=== PATIENT | male | born 1960 | race American Indian/Alaskan Native ===

== ENCOUNTER 2018-10-03 16:46 | Observation (INO) | payer MEDICARE ==
[2018-10-03 16:46] VITALS: BMI 37.3
[2018-10-03] MEDS ORDERED: Sodium Chloride 0.9% 500 ML IV STA (17:01)
--- NOTE | 2018-10-03 17:16 | ED PDOC ---
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 was at the bus stop and started getting light-headed and got chest pain/palpitations/dyspnea. He went to his friend's place and called the ambulance. Currently has no symptoms and feels back to baseline. Has had similar in the past 3-4 times and was dx with chf. On bp and water pill. No leg pain, nausea, vomit, abd pain, weakness, headaches. No cough. Past Medical History Reviewed: Nursing Documentation, Vital Signs Vital Signs: Last Vital Signs Temp 98.2 F 10/03/18 16:49 Pulse 118 H 10/03/18 16:49 Resp BP 208/111 H 10/03/18 16:49 Pulse Ox 98 10/03/18 16:49 - Medical History PMH: Arthritis, Asthma, Bronchitis, CAD, CHF, Diverticulitis, Hiatal Hernia, HTN - Surgical History Surgical History: Coronary Stent (x3), Hernia Repair ([facility]) - Family History Family History: States: Unknown Family Hx - Immunization History Hx Tetanus Toxoid Vaccination: Yes Hx Influenza Vaccination: Yes Hx Pneumococcal Vaccination: Yes - Home Medications Home Medications: Ambulatory Orders Medication Instructions Recorded Colchicine 0.12 mg PO DAILY 12/25/15 Carvedilol [Coreg] 25 mg PO BID 01/24/16 Aspirin 325 mg PO DAILY 02/29/16 Lisinopril [Zestril] 40 mg PO BID 08/05/16 Multivit,Iron,Min 5/Folic Acid 1 tab PO DAILY 08/05/16 [Strovite Forte Caplet] Rosuvastatin Calcium [Crestor] 10 mg PO HS #30 tab 04/10/17 Furosemide [Lasix] 40 mg PO DAILY 11/20/17 Docusate Sodium [Colace] 100 mg PO BID #30 capsule 03/19/18 Meclizine HCl 25 mg PO TID PRN #25 tablet 06/03/18 predniSONE [Prednisone] 40 mg PO DAILY #10 tab 07/13/18 - Allergies Allergies/Adverse Reactions: Allergies Allergy/AdvReac Type Severity Reaction Status Date / Time cephalexin monohydrate AdvReac VOMITING Verified 10/03/18 16:49 [From Keflex] iodixanol [From Visipaque] AdvReac VOMITING Verified 10/03/18 16:49 ctscan dye AdvReac VOMITING Uncoded 10/03/18 16:49 Review of Systems ROS Statement: Except As Marked, All Systems Reviewed And Found Negative Cardiovascular: Positive for: Chest Pain, Palpitations, Light Headedness Respiratory: Positive for: Shortness of Breath Neurological: Positive for: Dizziness Physical Exam - Reviewed Nursing Documentation Reviewed: Yes Vital Signs Reviewed: Yes - Physical Exam Appears: Positive for: Uncomfortable Head Exam: Positive for: ATRAUMATIC, NORMAL INSPECTION, NORMOCEPHALIC Skin: Positive for: Normal Color, Warm, DRY Eye Exam: Positive for: EOMI, Normal appearance, PERRL ENT: Positive for: Normal ENT Inspection Neck: Positive for: Normal, Painless ROM Cardiovascular/Chest: Positive for: Chest Non Tender, Tachycardia. Negative for: Edema Respiratory: Positive for: CNT, Normal Breath Sounds Gastrointestinal/Abdominal: Positive for: Normal Exam, Soft. Negative for: Tenderness Back: Positive for: Normal Inspection. Negative for: L CVA Tenderness, R CVA Tenderness Extremity: Positive for: Normal ROM. Negative for: Tenderness, Pedal Edema Neurologic/Psych: Positive for: Alert, wrist hemmer II-XII, Oriented. Negative for: M otor/Sensory Deficits - Laboratory Results Result Diagrams: 10/03/18 17:43 10/03/18 17:43 Lab Results: 3.5 k - ECG ECG: Positive for: Interpreted By Me, Viewed By Id ECG Rhythm: Positive for: Normal QRS, Sinus Tachycardia, Nonspecific Changes Interpretation Of Abn EKG: ekg 2: nonspecific st/t changes O2 Sat by Pulse Oximetry: 98 - Radiology X-Ray: Read By Radiologist X-Ray Interpretation: No Acute Disease - CT Scan/US ct Other Rad Studies (CT/US): Read By Radiologist Other Rad Interpretation: no acute - Progress ED Course And Treament: 1730: Stable. Pt. HR went up to 240s. Unable to catch on EKG as it went down after 1 min to 120s. Pt. had dizziness and palpitations during the symptoms, but gone after HR went down. When listening to heart during 240s HR. It was irregularly irregular. Will give cardizem 10mg to help with bp and possible intermittent afib. Repeat ekg showed nonspecific changes. EKG [address] Alvarado for code heart. States both are not in criteria for code heart. To follow protocol for eval. Pt. with no acute chest pain, dyspnea, or dizziness currently. 1903: Stable. HR maintained. No spikes. AAOx3. Has no symptoms currently. Will need admit. Unable to get CTA for PE as pt. allergic to dye. Symptoms more likely from arrythmia. PCP Dr. Hammonds. Cards Dr. Eubanks. 1921: Stable. Spoke with Dr. Andrade. Will admit. Will give 5 of lopressor. ICU. - Critical Care Total Time (In Min): 60 Documented Critical Care: Time excludes all time spent performint seperately billable procedures Disposition - Clinical Impression Clinical Impression: Acute chest pain, Arrhythmia, Tachycardia - Patient ED Disposition Is Patient to be Admitted: Yes Counseled Patient/Family Regarding: Studies Performed, Diagnosis - Disposition Disposition Time: 19:24 Condition: FAIR - Pt Status Changed To: Hospital Disposition Of: Inpatient - Admit Certification Admit to Inpatient:: After my assessment, the patient will require hospitalization for at least two midnights. This is because of the severity of symptoms shown, intensity of services needed, and/or the medical risk in this patient being treated as an outpatient. - POA Present On Arrival: None
[2018-10-03 17:49] LABS: BASO % 0.7 % (0.0-2.0); EOS # 0.1 K/uL (0.0-0.7); EOS % 1.4 % (0.0-4.0); HEMOGLOBIN 14.5 g/dL (12.0-18.0); LYMPH # 1.8 K/uL (1.0-4.3); MEAN CELL VOLUME 75.9 fl (80.0-94.0); MEAN CORPUSCULAR HEMOGLOBIN 24.3 pg (27.0-31.0); MEAN PLATELET VOLUME 7.5 fl (7.2-11.7); MONO # 0.6 K/uL (0.0-0.8); MONO % 12.8 % (0.0-10.0); NEUT % 45.1 % (50.0-75.0); RBC 5.95 Mil/uL (4.40-5.90); RED CELL DISTRIBUTION WIDTH 16.9 % (11.5-14.5); WHITE BLOOD COUNT 4.5 K/uL (4.8-10.8)
[2018-10-03 17:55] LABS: INR 1.1; PROTHROMBIN TIME 12.7 Seconds (9.8-13.1)
[2018-10-03 17:58] LABS: PARTIAL THROMBOPLASTIN TIME 34.8 Seconds (25.6-37.1)
[2018-10-03 18:01] LABS: ALB/GLOB RATIO 1.1 (1.0-2.1); ALBUMIN 4.5 g/dL (3.5-5.0); ALT/SGPT 45 U/L (21-72); AST/SGOT 48 U/L (17-59); BLOOD UREA NITROGEN 16 mg/dl (9-20); CALCIUM 9.5 mg/dL (8.4-10.2); GFR NON-AFRICAN AMERICAN > 60; LIPASE 88 U/L (23-300)
--- NOTE | 2018-10-03 18:01 | RAD ---
Date of service: 10/03/2018 HISTORY: dyspnea COMPARISON: No prior. FINDINGS: LUNGS: No active pulmonary disease. PLEURA: No significant pleural effusion identified, no pneumothorax apparent. CARDIOVASCULAR: Aortic atherosclerotic calcifications. Cardiomediastinal silhouette enlarged. OSSEOUS STRUCTURES: Spinal degenerative changes. VISUALIZED UPPER ABDOMEN: Normal. OTHER FINDINGS: None. IMPRESSION: No active disease.
[2018-10-03 18:12] LABS: B-TYPE NATRIURETIC PEPTIDE 73.2 pg/ml (0-900)
[2018-10-03 18:13] LABS: BARBITURATES, UR NEGATIVE (NEGATIVE); BENZODIAZEPINES, UR NEGATIVE (NEGATIVE); OPIATES, UR NEGATIVE (NEGATIVE); PHENCYCLIDINE, UR NEGATIVE (NEGATIVE)
[2018-10-03] MEDS ORDERED: Metoprolol 1 mg/ml Inj IVP STA (19:18)
[2018-10-03] MEDS ORDERED: Metoprolol 1 mg/ml Inj ONE (19:32)
--- NOTE | 2018-10-03 20:37 | CP.PCM.HP ---
History of Present Illness - History of Present Illness History of Present Illness: CC: heart racing HPI: This is a 58 year old male PMH CHF on Lasix 80 mg daily, hx of episodes of tachycardia, hypertension, morbid obesity, gout, moderate coronary artery disease status post catheterization 3, presents to the emergency department today for an episode of lightheadedness and palpitations, with some chest pain. Patient states he was at his friends watching a basketball game where he had a few beers and a few shots, some marijuana. He went to take the bus and began experiencing moderate, worsening lightheadedness that persisted until he arrived to the ED via EMS. The episodes are aggravated by standing and ameliorated when laying down. He denies any dypsnea, and is not hypoxic. In the ED heart rate was in 170s and spiked to 240s and self limited back down to the 170s. EKG showed sinus tachycardia. He was given Cardizem 10 mg and Lopressor 5 IV. HR now in 130s. It is unclear if patient has been compliant with medications today, and his home dose of Coreg has been resumed as well. He appears clinically dry and is receiving NS in ED @ 100. Hold lasix tonight and consider resuming tomorrow. He is HD stable, in no acute distress, and to be placed on OBS TELE. ROS: Per HPI all other systems reviewed and negative PMSH:CHF on Lasix 80 mg daily, hx of episodes of tachycardia, hypertension, morbid obesity, gout, moderate coronary artery disease status post catheterization 3 FH: father and brother with pacemakers SH: moderate drinking, minimal marijuana use, denies IVDU Meds as below Allergies: Keflex and Contrast, difficulty breathing Present on Admission - Present on Admission Any Indicators Present on Admission: No Past Patient History - Infectious Disease Hx of Infectious Diseases: None - Past Medical History & Family History Past Medical History?: Yes - Past Social History Smoking Status: Never Smoked - CARDIAC Hx Congestive Heart Failure: Yes Hx Hypertension: Yes - PULMONARY Hx Asthma: Yes Hx Bronchitis: Yes - NEUROLOGICAL Hx Neurological Disorder: No - HEENT Hx HEENT Problems: No - ENDOCRINE/METABOLIC Hx Endocrine Disorders: No - HEMATOLOGICAL/ONCOLOGICAL Hx Blood Disorders: No - INTEGUMENTARY Hx Dermatological Problems: Yes Hx Cellulitis: Yes - MUSCULOSKELETAL/RHEUMATOLOGICAL Hx Arthritis: Yes - GASTROINTESTINAL Hx Diverticulitis: Yes - GENITOURINARY/GYNECOLOGICAL Hx Genitourinary Disorders: No - PSYCHIATRIC Hx Psychophysiologic Disorder: No Hx Substance Use: No - SURGICAL HISTORY Hx Coronary Stent: Yes (x3) - ANESTHESIA Hx Anesthesia: Yes Hx Anesthesia Reactions: No Hx Malignant Hyperthermia: No Meds Allergies/Adverse Reactions: Allergies Allergy/AdvReac Type Severity Reaction Status Date / Time cephalexin monohydrate AdvReac VOMITING Verified 10/03/18 16:49 [From Keflex] iodixanol [From Visipaque] AdvReac VOMITING Verified 10/03/18 16:49 ctscan dye AdvReac VOMITING Uncoded 10/03/18 16:49 Physical Exam - Constitutional Appears: Non-toxic, No Acute Distress - Head Exam Head Exam: ATRAUMATIC, NORMOCEPHALIC - Eye Exam Eye Exam: EOMI, Normal appearance, PERRL - ENT Exam ENT Exam: Mucous Membranes Dry, Normal Oropharynx - Respiratory Exam Respiratory Exam: Clear to Auscultation Bilateral, NORMAL BREATHING PATTERN - Cardiovascular Exam Cardiovascular Exam: Tachycardia, +S1, +S2 - GI/Abdominal Exam GI & Abdominal Exam: Normal Bowel Sounds, Soft. absent: Guarding, Organomegaly, Rebound - Extremities Exam Extremities exam: Positive for: normal capillary refill, pedal pulses present - Back Exam Back exam: absent: CVA tenderness (L), CVA tenderness (R) - Neurological Exam Neurological exam: Alert, Oriented x3 - Psychiatric Exam Psychiatric exam: Normal Affect, Normal Mood - Skin Skin Exam: Dry, Warm Results - Vital Signs Recent Vital Signs: Last Vital Signs Temp 98.2 F 10/03/18 16:49 Pulse 138 H 10/03/18 19:33 Resp 17 10/03/18 18:12 BP 132/91 H 10/03/18 19:33 Pulse Ox 98 10/03/18 19:24 - Labs Result Diagrams: 10/03/18 17:43 10/03/18 17:43 Labs: Laboratory Results - last 24 hr 10/03/18 10/03/18 10/03/18 17:43 17:43 17:43 WBC 4.5 L RBC 5.95 H Hgb 14.5 Hct 45.2 MCV 75.9 L MCH 24.3 L MCHC 32.0 L RDW 16.9 H Plt Count 327 MPV 7.5 Neut % (Auto) 45.1 L Lymph % (Auto) 40.0 [place] % (Auto) 12.8 H Eos % (Auto) 1.4 Baso % (Auto) 0.7 Neut # (Auto) 2.0 Lymph # (Auto) 1.8 [place] # (Auto) 0.6 Eos # (Auto) 0.1 Baso # (Auto) 0.0 PT INR APTT Sodium 140 Potassium 3.5 L Chloride 95 L Carbon Dioxide 26 Anion Gap 23 H BUN 16 Creatinine 1.0 Est GFR ( Amer) > 60 Est GFR (Non-Af Amer) > 60 Random Glucose 118 H Calcium 9.5 Total Bilirubin 0.3 AST 48 ALT 45 Alkaline Phosphatase 86 Troponin I < 0.0120 NT-Pro-B Natriuret Pep 73.2 Total Protein 8.6 H Albumin 4.5 Globulin 4.1 H Albumin/Globulin Ratio 1.1 Lipase 88 Urine Opiates Screen Negative Urine Methadone Screen Negative Ur Barbiturates Screen Negative Ur Phencyclidine Scrn Negative Ur Amphetamines Screen Negative U Benzodiazepines Scrn Negative U Oth Cocaine Metabols Negative U Cannabinoids Screen Negative 10/03/18 17:43 WBC RBC Hgb Hct MCV MCH MCHC RDW Plt Count MPV Neut % (Auto) Lymph % (Auto) [place] % (Auto) Eos % (Auto) Baso % (Auto) Neut # (Auto) Lymph # (Auto) [place] # (Auto) Eos # (Auto) Baso # (Auto) PT 12.7 INR 1.1 APTT 34.8 Sodium Potassium Chloride Carbon Dioxide Anion Gap BUN Creatinine Est GFR ( Amer) Est GFR (Non-Af Amer) Random Glucose Calcium Total Bilirubin AST ALT Alkaline Phosphatase Troponin I NT-Pro-B Natriuret Pep Total Protein Albumin Globulin Albumin/Globulin Ratio Lipase Urine Opiates Screen Urine Methadone Screen Ur Barbiturates Screen Ur Phencyclidine Scrn Ur Amphetamines Screen U Benzodiazepines Scrn U Oth Cocaine Metabols U Cannabinoids Screen Assessment & Plan - Assessment and Plan (Free Text) Assessment: This is a 58 year old male PMH CHF on Lasix 80 mg daily, hx of episodes of tachycardia, hypertension, morbid obesity, gout, moderate coronary artery disease status post catheterization 3, presents to the emergency department today for an episode of lightheadedness and palpitations, with some chest pain. Patient states he was at his friends watching a basketball game where he had a few beers and a few shots, some marijuana. He went to take the bus and began experiencing moderate, worsening lightheadedness that persisted until he arrived to the ED via EMS. The episodes are aggravated by standing and ameliorated when laying down. He denies any dypsnea, and is not hypoxic. In the ED heart rate was in 170s and spiked to 240s and self limited back down to the 170s. EKG showed sinus tachycardia. He was given Cardizem 10 mg and Lopressor 5 IV. HR now in 130s. It is unclear if patient has been compliant with medications today, and his home dose of Coreg has been resumed as well. He appears clinically dry and is receiving NS in ED @ 100. Hold lasix tonight and consider resuming tomorrow. He is HD stable, in no acute distress, and to be placed on OBS TELE. Sinus Tachycardia 2/2 medication noncompliance vs. volume depletion vs. postural orthostatic tachycardia. - currently HR 130s - received Cardizem 10 mg and Lopressor 5 mg IV with appropriate response - received KCl 40 meq for K 3.5, checking Mg in AM as well - resumed home dose of Coreg as it is unclear if he is complaint with meds, reevaluate and will adjust dose as necessary - patient on Lasix 80 mg daily however appears clinically volume depleted with dry mm, dark urine noted in ED, will hold Lasix and reevaluate tomorrow - receiving NS @100 - TSH, electrolytes in AM - obs on TELE CHF / Mild Pulmonary HTN? CAD HTN - all conditions stable - Carvedilol 25 mg PO q12 - Rosuvastatin 10 mg PO HS - Aspirin 325 mg PO DAILY - Lisinopril 40 mg PO q12 Gout - stable - Colchicine 0.12 mg PO DAILY DVT ppx Enoxaparin 40 mg SC DAILY
[2018-10-03] MEDS ORDERED: Potassium Chloride 20 mEq ER Tab PO ONE (20:45)
[2018-10-04 07:30] LABS: BLOOD UREA NITROGEN 14 mg/dl (9-20); CALCIUM 9.1 mg/dL (8.4-10.2); GFR NON-AFRICAN AMERICAN > 60
[2018-10-04] MEDS ORDERED: Enoxaparin 40 mg Syringe SC SCH (09:00)
--- NOTE | 2018-10-04 09:02 | CT ---
Date of service: 10/03/2018 PROCEDURE: CT HEAD WITHOUT CONTRAST. HISTORY: headache COMPARISON: None available. TECHNIQUE: Axial computed tomography images were obtained through the head/brain without intravenous contrast. Radiation dose: Total exam DLP = 914.8 mGy-cm. This CT exam was performed using one or more of the following dose reduction techniques: Automated exposure control, adjustment of the mA and/or kV according to patient size, and/or use of iterative reconstruction technique. FINDINGS: HEMORRHAGE: No intracranial hemorrhage. BRAIN: No mass effect or edema. No atrophy or chronic microvascular ischemic changes. VENTRICLES: Unremarkable. No hydrocephalus. CALVARIUM: Unremarkable. PARANASAL SINUSES: Unremarkable as visualized. No significant inflammatory changes. MASTOID AIR CELLS: Unremarkable as visualized. No inflammatory changes. OTHER FINDINGS: None. IMPRESSION: No acute intracranial pathology.
--- NOTE | 2018-10-04 09:46 | CP.PCM.PN ---
Subjective - Date & Time of Evaluation Date of Evaluation: 10/04/18 Time of Evaluation: 09:46 - Subjective Subjective: Patient seen and examined at bedside. Patient reports he feels well and reports he has good appetite. Has not yet had a BM. Denies Chest pain, shortness of breath, Palpitations, nausea or vomiting. Of note, patients HR was 138-140's this morning. At that time, patient was given Cardizem IVP 5mg stat and Cardizem 30mg po stat. HR decreased to 118-120's. Patient reported symptom of sweating but denied chest pain, dyspnea, dyspnea on exertion or chest pain on exertion. Patient denies use of cocaine. Objective - Vital Signs/Intake and Output Vital Signs (last 24 hours): Temp Pulse Resp BP Pulse Ox 98.0 F 130 H 18 143/81 98 10/04/18 08:00 10/04/18 08:06 10/04/18 08:00 10/04/18 08:06 10/04/18 08:00 - Medications Medications: Current Medications Aspirin (Aspirin) 325 mg PO DAILY [facility] Last Admin: 10/04/18 08:09 Dose: 325 mg Atorvastatin Calcium (Lipitor) 20 mg PO HS [facility] Last Admin: 10/03/18 23:54 Dose: 20 mg Carvedilol (Coreg) 25 mg PO Q12 [facility] Last Admin: 10/04/18 08:06 Dose: 25 mg Colchicine (Colocrys) 1.2 mg PO DAILY [facility] Last Admin: 10/04/18 08:06 Dose: 1.2 mg Diltiazem HCl (Cardizem) 5 mg IVP ONCE STA Stop: 10/04/18 09:44 Diltiazem HCl (Cardizem) 30 mg PO ONCE ONE Stop: 10/04/18 09:44 Docusate Sodium (Colace) 100 mg PO BID [facility] Last Admin: 10/04/18 08:07 Dose: 100 mg Enoxaparin Sodium (Lovenox) 40 mg SC DAILY [facility]; Protocol Last Admin: 10/04/18 08:07 Dose: 40 mg Lisinopril (Zestril) 40 mg PO Q12 [facility] Last Admin: 10/04/18 08:05 Dose: 40 mg - Labs Labs: 10/03/18 17:43 10/04/18 06:45 PT 12.7 Seconds (9.8-13.1) 10/03/18 17:43 INR 1.1 10/03/18 17:43 APTT 34.8 Seconds (25.6-37.1) 10/03/18 17:43 - Constitutional Appears: Non-toxic, No Acute Distress - Eye Exam Eye Exam: Normal appearance - ENT Exam ENT Exam: Mucous Membranes Moist - Respiratory Exam Respiratory Exam: Clear to Ausculation Bilateral, NORMAL BREATHING PATTERN. absent: Decreased Breath Sounds, Rales, Rhonchi, Wheezes, Respiratory Distress, Stridor - Cardiovascular Exam Cardiovascular Exam: Tachycardia, +S1, +S2. absent: Gallop, Rubs, Murmur Additional comments: +2 RADIAL PULSES BILATERALLY. Tachycardia noted. - GI/Abdominal Exam GI & Abdominal Exam: Soft, Normal Bowel Sounds. absent: Firm, Guarding, Rigid, Tenderness, Rebound Additional comments: Obese abdomen. - Extremities Exam Extremities Exam: Normal Capillary Refill, Normal Inspection. absent: Joint Swelling, Pedal Edema, Tenderness Additional comments: +2 dorsalis pedis pulses bilaterally. - Neurological Exam Neurological Exam: Alert, Awake - Skin Skin Exam: Dry, Intact, Normal Color, Warm Assessment and Plan - Assessment and Plan (Free Text) Assessment: 58 year old male PMH CHF on Lasix 80 mg daily, hx of episodes of tachycardia, hypertension, morbid obesity, gout, moderate coronary artery disease status post catheterization 3, presents to the emergency department today for an episode of lightheadedness and palpitations, with some chest pain admitted for sinus tachycardia. Plan: Sinus Tachycardia 2/2 medication noncompliance vs. volume depletion vs. postural orthostatic tachycardia. - currently HR 120-130's - received Cardizem 5 mg IVP and Cardizem 30mg PO which decreased his tachycardia of 138-140's to 118-120's. - Lasix 80 mg currently on hold due to being clinically volume depleted - TSH- normal (0.71) - Continue to obs on TELE - Cardiac consult appreciated. - Troponin negative x2. Pending 3rd troponin. CHF / Mild Pulmonary HTN? - stable - Carvedilol 25 mg PO q12 - Rosuvastatin 10 mg PO HS - Aspirin 325 mg PO DAILY - Lisinopril 40 mg PO q12 CAD - stable - Carvedilol 25 mg PO q12 - Rosuvastatin 10 mg PO HS - Aspirin 325 mg PO DAILY - Lisinopril 40 mg PO q12 HTN - stable - Carvedilol 25 mg PO q12 - Rosuvastatin 10 mg PO HS - Aspirin 325 mg PO DAILY - Lisinopril 40 mg PO q12 Gout - stable - Colchicine 0.12 mg PO DAILY DVT ppx Enoxaparin 40 mg SC DAILY
--- NOTE | 2018-10-04 16:49 | CARD ---
APPROVED REPORT Date of service: 10/03/2018 EKG Measurement Heart [id number] [id number] <Conclusion> Sinus tachycardia ST & T wave abnormality, consider inferior ischemia Abnormal ECG
[2018-10-04] MEDS: Enoxaparin 150 mg Syringe SC SCH (21:11)
--- NOTE | 2018-10-04 23:59 | CARD ---
APPROVED REPORT Date of service: 10/03/2018 EKG Measurement Heart [id number] 200P [id number] <Conclusion> Sinus tachycardia ST abnormality, consider inferolateral ischemia Abnormal ECG
[2018-10-05] MEDS: Enoxaparin 150 mg Syringe SC SCH (08:25)
[2018-10-05 08:26] VITALS: RESP 20
[2018-10-05 08:46] LABS: HEMOGLOBIN 14.7 g/dL (12.0-18.0); MEAN CELL VOLUME 76.4 fl (80.0-94.0); MEAN CORPUSCULAR HEMOGLOBIN 24.4 pg (27.0-31.0); MEAN CORPUSCULAR HGB CONC 31.9 g/dL (33.0-37.0); RBC 6.03 Mil/uL (4.40-5.90); RED CELL DISTRIBUTION WIDTH 16.8 % (11.5-14.5); WHITE BLOOD COUNT 4.9 K/uL (4.8-10.8)
[2018-10-05] MEDS ORDERED: Digoxin 250 mcg (0.25 mg) Tab PO ONE ×2 (09:08→09:30)
[2018-10-05 09:12] LABS: BLOOD UREA NITROGEN 15 mg/dl (9-20); CALCIUM 9.1 mg/dL (8.4-10.2); GFR NON-AFRICAN AMERICAN > 60
--- NOTE | 2018-10-05 09:16 | CP.PCM.DIS ---
Provider - Provider Date of Admission: 10/03/18 19:19 Attending physician: Constanza Andrade DO Consults: 10/04/18 08:48 Cardiology Consult Routine Comment: Consulting Provider: Neil Goyal Consulting Physician: Neil Goyal Reason for Consult: tachycardia history of CAD Time Spent in preparation of Discharge (in minutes): 30 Diagnosis - Discharge Diagnosis (1) Arrhythmia Status: Acute (2) Tachycardia Status: Acute (3) CAD (coronary artery disease) Status: Acute (4) Gout Status: Acute (5) HTN (hypertension) Status: Acute Hospital Course - Lab Results Lab Results: Most Recent Lab Values WBC 4.9 K/uL (4.8-10.8) 10/05/18 08:23 RBC 6.03 Mil/uL (4.40-5.90) H 10/05/18 08:23 Hgb 14.7 g/dL (12.0-18.0) 10/05/18 08:23 Hct 46.1 % (35.0-51.0) 10/05/18 08:23 MCV 76.4 fl (80.0-94.0) L 10/05/18 08:23 MCH 24.4 pg (27.0-31.0) L 10/05/18 08:23 MCHC 31.9 g/dL (33.0-37.0) L 10/05/18 08:23 RDW 16.8 % (11.5-14.5) H 10/05/18 08:23 Plt Count 349 K/uL (130-400) 10/05/18 08:23 MPV 7.5 fl (7.2-11.7) 10/03/18 17:43 Neut % (Auto) 45.1 % (50.0-75.0) L 10/03/18 17:43 Lymph % (Auto) 40.0 % (20.0-40.0) 10/03/18 17:43 [place] % (Auto) 12.8 % (0.0-10.0) H 10/03/18 17:43 Eos % (Auto) 1.4 % (0.0-4.0) 10/03/18 17:43 Baso % (Auto) 0.7 % (0.0-2.0) 10/03/18 17:43 Neut # (Auto) 2.0 K/uL (1.8-7.0) 10/03/18 17:43 Lymph # (Auto) 1.8 K/uL (1.0-4.3) 10/03/18 17:43 [place] # (Auto) 0.6 K/uL (0.0-0.8) 10/03/18 17:43 Eos # (Auto) 0.1 K/uL (0.0-0.7) 10/03/18 17:43 Baso # (Auto) 0.0 K/uL (0.0-0.2) 10/03/18 17:43 PT 12.7 Seconds (9.8-13.1) 10/03/18 17:43 INR 1.1 10/03/18 17:43 APTT 34.8 Seconds (25.6-37.1) 10/03/18 17:43 Sodium 137 mmol/l (132-148) 10/05/18 08:23 Potassium 4.1 MMOL/L (3.6-5.0) 10/05/18 08:23 Chloride 97 mmol/L (98-107) L 10/05/18 08:23 Carbon Dioxide 28 mmol/L (22-30) 10/05/18 08:23 Anion Gap 16 (10-20) 10/05/18 08:23 BUN 15 mg/dl (9-20) 10/05/18 08:23 Creatinine 1.1 mg/dl (0.8-1.5) 10/05/18 08:23 Est GFR ( Amer) > 60 10/05/18 08:23 Est GFR (Non-Af Amer) > 60 10/05/18 08:23 Random Glucose 124 mg/dL (75-110) H 10/05/18 08:23 Calcium 9.1 mg/dL (8.4-10.2) 10/05/18 08:23 Magnesium 1.9 MG/DL (1.6-2.3) 10/04/18 06:45 Total Bilirubin 0.3 mg/dl (0.2-1.3) 10/03/18 17:43 AST 48 U/L (17-59) 10/03/18 17:43 ALT 45 U/L (21-72) 10/03/18 17:43 Alkaline Phosphatase 86 U/L (38-126) 10/03/18 17:43 Troponin I 0.0220 ng/mL (0.00-0.120) 10/04/18 06:45 NT-Pro-B Natriuret Pep 73.2 pg/ml (0-900) 10/03/18 17:43 Total Protein 8.6 G/DL (6.3-8.2) H 10/03/18 17:43 Albumin 4.5 g/dL (3.5-5.0) 10/03/18 17:43 Globulin 4.1 gm/dL (2.2-3.9) H 10/03/18 17:43 Albumin/Globulin Ratio 1.1 (1.0-2.1) 10/03/18 17:43 Lipase 88 U/L (23-300) 10/03/18 17:43 Free T4 0.97 ng/dL (0.78-2.19) 10/04/18 06:45 Free T3 pg/mL 4.16 pg/mL (2.77-5.27) 10/04/18 06:45 TSH 3rd Generation 0.71 mIU/ML (0.46-4.68) 10/04/18 06:45 Urine Opiates Screen Negative (NEGATIVE) 10/03/18 17:43 Urine Methadone Screen Negative (NEGATIVE) 10/03/18 17:43 Ur Barbiturates Screen Negative (NEGATIVE) 10/03/18 17:43 Ur Phencyclidine Scrn Negative (NEGATIVE) 10/03/18 17:43 Ur Amphetamines Screen Negative (NEGATIVE) 10/03/18 17:43 U Benzodiazepines Scrn Negative (NEGATIVE) 10/03/18 17:43 U Oth Cocaine Metabols Negative (NEGATIVE) 10/03/18 17:43 U Cannabinoids Screen Negative (NEGATIVE) 10/03/18 17:43 - Hospital Course Hospital Course: 58 year old male PMH CHF on Lasix 80 mg daily, hx of episodes of tachycardia, hypertension, morbid obesity, gout, moderate coronary artery disease status post catheterization 3, presented to the E.D for an episode of lightheadedness and palpitations, with some chest pain admitted for sinus tachycardia. In the ED heart rate was in 170s and spiked to 240s and self limited back down to the 170s. EKG showed sinus tachycardia at that time- he was given Cardizem 10 mg and Lopressor 5 IV. HR decreased to 130s. He appeared clinically dry so Lasix was held and he received NS in ED @ 100. He was HD stable, in no acute distress, and he was placed on OBS TELE. Patient was found to have Atrial flutter. On tele- patient was observed to have tachycardia in 140's of which he was given Cardizem IVP 5mg and Cardizem 30mg po stat. HR decreased to 118-120's and Cardiology consult was placed for optimum control of his newly detected Atrial flutter. Dr. Ennis recommendations appreciated, patient was put on Cardizem drip and Lovenox 130 Q12H. Patient to be started on Digoxin 0.25mg po daily and Xarelto 20mg po daily for discharge along with continuing his home medications. 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 Discharge Exam - Head Exam Head Exam: ATRAUMATIC, NORMOCEPHALIC - Eye Exam Eye Exam: Normal appearance - ENT Exam ENT Exam: Mucous Membranes Moist - Respiratory Exam Respiratory Exam: Clear to PA & Lateral, NORMAL BREATHING PATTERN, UNREMARKABLE. absent: Decreased Breath Sounds, Rales, Rhonchi, Respiratory Distress - Cardiovascular Exam Cardiovascular Exam: Irregular Rhythm, +S1, +S2 - GI/Abdominal Exam GI & Abdominal Exam: Normal Bowel Sounds, Soft, Unremarkable. absent: Bruit, Distended, Firm, Guarding, Rebound, Rigid, Tenderness - Extremities Exam Extremities exam: normal capillary refill, normal inspection - Back Exam Back exam: NORMAL INSPECTION - Neurological Exam Neurological exam: Alert, Oriented x3 - Skin Skin Exam: Dry, Intact, Normal Color, Warm Discharge Plan - Discharge Medications Prescriptions: Digoxin 250 mcg PO DAILY 30 Days #30 tablet Rivaroxaban [Xarelto Starter Pack] 20 mg PO DAILY #30 tab - Follow Up Plan Condition: FAIR Disposition: HOME/ ROUTINE Patient education suggested?: Yes Instructions: Arrhythmias (DC), Tachycardia (DC), Cardioversion (DC), Hypertension (DC), Hypertension (GEN) Additional Instructions: F/u with primary physician F/U with [facility] for Digoxin 0.25mg po daily and Xarelto 20mg po daily e-prescribed to pharmacy. Referrals: Cem Ennis MD [Staff Provider] -
[2018-10-05 09:26] VITALS: PULSE 115
--- NOTE | 2018-10-05 09:29 | CARD ---
APPROVED REPORT Date of service: 10/04/2018 EKG Measurement Heart [id number] <Conclusion> Atrial fibrillation with rapid ventricular rate Nonspecific T wave abnormality Abnormal ECG
--- NOTE | 2018-10-05 09:47 | CP.PCM.CON ---
History of Present Illness - History of Present Illness History of Present Illness: this 56-year-old -Citizen Of [place] male, arrived in the emergency room complaining of a sense of lightheadedness and palpitations for last couple of days. He has had numerous visits to the [facility] em ergency room over last couple of years and has been hospitalized numerous times. He gives history of having had coronary angiography couple of times at [facility] the last one being 5-6 years back and was told of minor coronary artery disease that did not require any intervention. He has never suffered a myocardial infarction. He has had a sleep study at [facility] and has been told of having obstructive sleep apnea which has never been treated. He continues to be severely obese and has a history of hypertension and congestive cardiac failure which is being treated with beta-blockade BIN inhibitor and furosemide. Review off his recent visits to [facility] indicates a persiste nt sinus rhythm and a borderline left ventricular systolic function with mildly enlarged left atrium. The patient indicates that he is able to walk approximately 5-6 blocks without having to stop and has not experienced any orthopnea. In the emergency room the patient was found to be in atrial flutter with rapid heart rate and was given boluses of Cardizem with only temporary relief. Yesterday he was started on Cardizem intravenous drip following a bolus of 10 mg given intravenously and has had a heart rate in the range of 90-100 bpm with persistent atrial flutter and a variable ventricular rate. Physical examination shows an overweight -Citizen Of [place] male who is quite comfortable while slightly propped up in bed and can carry on a conversation. His respiratory rate was 16-18 breaths per minute and his heart rate was 96 bpm irregularly irregular. His blood pressure was 130/74 mmHg. His jugular venous pressure could not adequately evaluated because of a short thick neck. There was no pedal edema and there were no rales. His pedal pulses were well felt and there were no carotid bruits. The apex was not palpable. The first and second heart sounds were distant but normal. There was no murmur or gallop. Abdomen was soft liver and spleen are not palpable. His electrocardiogram at admission showed evidence of atrial flutter with 2 to one conduction. His recent cardiogram shows persistent atrial flutter with variable AV conduction. No Q waves were detected on his cardiogram. Review off his electrocardiograms from last year shows sinus rhythm with nonspecific ST changes but no Q waves. Review of his echocardiograms of April last year show a normal-sized left ventricle with borderline systolic function and a mildly enlarged left atrium. His labs were noted. Impression: newly detected atrial flutter in a patient with known history of hypertension and chronic severe obesity obstructive sleep apnea (untreated) and congestive cardiac failure ( chronic diastolic and left ventricular) the patient indicates that he has to return urgently home. I have started him on oral digoxin in addition to carvedilol that she took on the regular basis to control his heart rate. I also started him on oral anticoagulation because of onset of atrial flutter fibrillation. 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 The patient promises to see his tree feller operator with no neck scar couple of days because he is to return home urgently. I have discussed his case with the residents and the patient will go home taking 0.25 mg of digoxin as well as oral anticoagulation in addition to his medications that he took regularly at home. Past Patient History - Infectious Disease Hx of Infectious Diseases: None - Past Medical History & Family History Past Medical History?: Yes - Past Social History Smoking Status: Never Smoked - CARDIAC Hx Cardiac Disorders: Yes Hx Congestive Heart Failure: Yes Hx Hypertension: Yes - PULMONARY Hx Respiratory Disorders: Yes Hx Asthma: Yes Hx Bronchitis: Yes - NEUROLOGICAL Hx Neurological Disorder: No - HEENT Hx HEENT Problems: No - RENAL Hx Chronic Kidney Disease: No - ENDOCRINE/METABOLIC Hx Endocrine Disorders: No - HEMATOLOGICAL/ONCOLOGICAL Hx Blood Disorders: No - INTEGUMENTARY Hx Dermatological Problems: No - MUSCULOSKELETAL/RHEUMATOLOGICAL Hx Musculoskeletal Disorders: Yes Hx Arthritis: Yes Hx Falls: No - GASTROINTESTINAL Hx Gastrointestinal Disorders: Yes Hx Diverticulitis: Yes - GENITOURINARY/GYNECOLOGICAL Hx Genitourinary Disorders: No - PSYCHIATRIC Hx Psychophysiologic Disorder: No - SURGICAL HISTORY Hx Surgeries: Yes Hx Coronary Stent: Yes (x3) - ANESTHESIA Hx Anesthesia: Yes Hx Anesthesia Reactions: No Hx Malignant Hyperthermia: No Meds Allergies/Adverse Reactions: Allergies Allergy/AdvReac Type Severity Reaction Status Date / Time cephalexin monohydrate AdvReac VOMITING Verified 10/03/18 16:49 [From Keflex] iodixanol [From Visipaque] AdvReac VOMITING Verified 10/03/18 16:49 ctscan dye AdvReac VOMITING Uncoded 10/03/18 16:49 - Medications Medications: Current Medications Atorvastatin Calcium (Lipitor) 20 mg PO HS [facility] Last Admin: 10/04/18 21:10 Dose: 20 mg Carvedilol (Coreg) 25 mg PO Q12 [facility] Last Admin: 10/05/18 08:25 Dose: 25 mg Colchicine (Colocrys) 1.2 mg PO DAILY [facility] Last Admin: 10/05/18 08:27 Dose: 1.2 mg Docusate Sodium (Colace) 100 mg PO BID [facility] Last Admin: 10/05/18 08:25 Dose: 100 mg Lisinopril (Zestril) 40 mg PO Q12 [facility] Last Admin: 10/05/18 08:26 Dose: 40 mg Rivaroxaban (Xarelto) 20 mg PO QD5 [facility]; Protocol Results - Vital Signs Recent Vital Signs: Last Vital Signs Temp 97.6 F 10/05/18 08:25 Pulse 109 H 10/05/18 08:26 Resp 20 10/05/18 08:25 BP 129/89 10/05/18 08:26 Pulse Ox 99 10/05/18 08:25 - Labs Result Diagrams: 10/05/18 08:23 10/05/18 08:23 Labs: Laboratory Results - last 24 hr 10/04/18 10/05/18 10/05/18 06:45 08:23 08:23 WBC 4.9 RBC 6.03 H Hgb 14.7 Hct 46.1 MCV 76.4 L MCH 24.4 L MCHC 31.9 L RDW 16.8 H Plt Count 349 Sodium 137 Potassium 4.1 Chloride 97 L Carbon Dioxide 28 Anion Gap 16 BUN 15 Creatinine 1.1 Est GFR ( Amer) > 60 Est GFR (Non-Af Amer) > 60 Random Glucose 124 H Calcium 9.1 Free T3 pg/mL 4.16
[2018-10-05 12:37] VITALS: BP 121/81; PULSE 80; TEMP 98.2; O2SAT 95
== END 2018-10-05 14:15 | disposition home or self-care (01) ==
LOC: H.ER 16:46 → H.ERHOLD 19:19 → INTOOBSV 19:19 → H.TEL 21:57
PROVIDERS: ADMIT Student in an Organized Health Care Education/Training Program; ATTEND Student in an Organized Health Care Education/Training Program
DX: I48.92 Unspecified atrial flutter (principal); E66.01 Morbid (severe) obesity due to excess calories; E86.9 Volume depletion, unspecified; G47.33 Obstructive sleep apnea (adult) (pediatric); I11.0 Hypertensive heart disease with heart failure; I50.32 Chronic diastolic (congestive) heart failure; M10.9 Gout, unspecified; Z79.82 Long term (current) use of aspirin; I25.10 Atherosclerotic heart disease of native coronary artery without angina pectoris; Z95.5 Presence of coronary angioplasty implant and graft; J45.909 Unspecified asthma, uncomplicated; M19.90 Unspecified osteoarthritis, unspecified site; Z91.041 Radiographic dye allergy status
CPT/HCPCS: 36415; 70450; 71045; 80048; 80053; 80324; 80345; 80346; 80349; 80353; 80358; 80361; 83690; 83735; 83880; 83992; 84439; 84443; 84481; 84484; 85025; 85027; 85610; 85730; 93005; 96361; 96372; 96374; 96375; 96376; 99285; G0378; J1650; J7040